=== PATIENT | female | born 1980 | race Caucasian/White ===

== ENCOUNTER 2021-08-09 09:55 | Emergency (ER) | payer SELFPAY ==
[~2021-08-09] VITALS: Ht 157.5 cm; Wt 86.2 kg
[2021-08-09] MEDS ORDERED: HYDROCODONE/APAP 5MG-325MG TAB PO ONE (10:30)
[2021-08-09] MEDS ORDERED: PREDNISONE 20 MG TAB PO ONE (10:30)
[2021-08-09] MEDS ORDERED: MEDROL4 MG PO (12:07)
== END 2021-08-09 12:13 | disposition home or self-care (01) ==
LOC: ER 10:00
DX: M79.89 Other specified soft tissue disorders (principal)
CPT/HCPCS: 73130; 99283; J7512

== ENCOUNTER → 2022-08-15 | Outpatient (CLI) | payer OTHER ==
[~2022-08-15] MED LIST: MEDROL4 MG PO
== END ==
LOC: MAMMO 15:05
PROVIDERS: ATTEND Internal Medicine
DX: Z12.31 Encounter for screening mammogram for malignant neoplasm of breast (principal)
CPT/HCPCS: 77067